=== PATIENT | male | born 1940 | race Caucasian/White ===

== ENCOUNTER → 2017-07-01 | Day surgery (SDC) | payer OTHER, MEDICARE ==
[2017-06-27 07:37] VITALS: Ht 175.3 cm; Wt 90.0 kg
[~2017-07-01] VITALS: Ht 175.3 cm; Wt 90.0 kg
[~2017-07-01] MED LIST: ASPCH81X PO; ATOR-22 PO; ATROPINE SULFATE 0.1 MG/ML 5ML SYR IV PRN; BACITRACIN/POLYMYXIN B OINT 15 GM TUBE EXT ONE; CALC-323 PO; CEFAZOLIN 2000MG IV PUSH 10 ML IV SCH; ERGO500037 PO; EpHEDrine SULFATE INJ 50 MG/ML AMP IV PRN; EpINEphrine INJ 1MG/ML AMP 1 MG/ML AMP ONE; FENO160T PO; FENTANYL CITRATE INJ 50 MCG/1 ML 2 ML VIAL IV PRN; FENTANYL CITRATE INJ 50 MCG/1 ML 2 ML VIAL ONE; HYDROCODONE/ACETAMOPHEN 5/325MG TAB PO PRN; LACTATED RINGER'S 1000ML 1,000 ML IV SCH; LEVO100T7 PO; LIDOCAINE 4% MPF SOAK 5 ML = 1 DOSE TOP ONE; LIDOCAINE HCL 2% 2 ML VIAL (20MG/ML) ONE; LIDOCAINE/EPINEPHRINE 1% 20 ML VIAL ONE; LISI20TA3 PO; MULT-506 PO; ONDANSETRON INJ 2 MG/ML 2 ML VIAL IV PRN; OXYMETAZOLINE HCL 0.05% NA SPR 15 ML BTL PRN; OXYMETAZOLINE HCL 0.05% NA SPR 15 ML BTL SCH; PRIM50TA34 PO; PROPOFOL IV EMULSION 10 MG/ML 20 ML VIAL IV ONE
--- NOTE | 2017-07-01 11:16 | History and Physical: Surg Cnt ---
History & Physical Date Jul 01, 2017. Chief Complaint RECURRENT NOSEBLEEDS History of Present Illness The patient is a 76 year old male with complaints of RECURRENT RIGHT ANTERIOR EPISTAXIS S/P MULTIPLE IN-OFFICE CAUTERIZATIONS WITH RECURRENCE AND RIGHT SEPTAL VASCULAR LESION NOTED THE LIKELY SOURCE OF THE BLEEDING. Past Medical/Surgical History PMH: ABOVE, CAD, DYSLIPIDEMIA, OSTEOPENIA, RBBB, SINUS BRADYCARDIA S/P PACEMAKER PLACEMENT, VIT D DEFICIENCY PSH: S/P CARDIAC CATH, S/P PACEMAKER, S/P PARATHYROID SURGERY Additional History Hepatic Disease: No Endocrine Disorder: No Kidney Disease: No Hypertension: No Heart Disease: No Bleeding Tendencies: No Infectious Diseases: No Allergies Coded Allergies: Latex1 -Allergic Contact Dermititis (Verified Allergy, Intermediate, RED SKIN, 07/01/17) NO KNOWN DRUG ALLERGIES (Verified Allergy, Unknown, ., 07/01/17) Home Medications Scheduled Aspirin (Aspirin Chewable), 81 MG PO DAILY Atorvastatin (Lipitor), 20 MG PO QAM Calcium Citrate-Vitamin D (Citracal Maximum), 1 TAB PO QAM Ergocalciferol (Vitamin D 76275 Unit), 50,000 UNIT PO 2XWK Fenofibrate (Tricor), 160 MG PO QAM Levothyroxine Sodium (Levothyroxine Sodium), 1 TAB PO QAM Lisinopril (Prinivil), 20 MG PO QAM Multivitamin (Multivitamin), 1 TAB PO QAM Primidone (Mysoline), 50 MG PO HS Physical Examination Skin: warm/dry, no rash Eyes: normal inspection, EOMI, sclerae normal ENT: + pertinent finding (3 MM ANTERIOR AND MID RIGHT SEPTAL VASCULAR LESION) Head: normocephalic, atraumatic Neck: supple, no adenopathy, trachea midline Respiratory/Chest: lungs clear, normal breath sounds, no respiratory distress Cardiovascular: regular rate, rhythm, no edema, no murmur Neurologic/Psych: no motor/sensory deficits, alert, normal reflexes, oriented x 3 Diagnosis RECURRENT RIGHT ANTERIOR EPISTAXIS AND RIGHT NASAL SEPTAL LESION Plan of Treatment EXCISIONAL BIOPSY OF RIGHT SEPTAL LESION
--- NOTE | 2017-07-01 11:48 | [facility] Operative Report ---
Operative Report Operative Date Jul 01, 2017. Pre-Operative Diagnosis Epistaxis, nasal lesion Post-Operative Diagnosis same Procedure(s) Performed Right Nasal Lesion Excisional Biopsy Surgeon Dr. Joshua 3D Specialist Surgeon(s) none Estimated Blood Loss 2ML Findings ~3MM RIGHT MID SEPTAL HYPERVASCULAR LESION Specimens RIGHT SEPTAL LESION I attest to the content of the Intraoperative Record and any orders documented therein. Any exceptions are noted below.
--- NOTE | 2017-07-01 11:51 | Discharge Instructions ---
Discharge Instructions Date of Service Jul 01, 2017. Admission Reason for Admission: Epistaxis, Nasal Lesion Discharge Discharge Diagnosis / Problem: SAME Discharge Goals Goal(s): Therapeutic intervention Activity Recommendations Activity Limitations: as noted below NO NOSE BLOWING FOR 2 WEEKS; NO DRIVING WHILE ON [place] . Current Hospital Diet Patient's current hospital diet: Discharge Diet Recommended Diet: Regular Diet Procedures Procedures Performed: Right Nasal Lesion Excisional Biopsy Pending Studies Studies pending at discharge: no Medical Emergencies . Who to Call and When: Medical Emergencies: If at any time you feel your situation is an emergency, please call 911 immediately. . Non-Emergent Contact Non-Emergency issues call your: Surgeon . . "Provider Documentation" section prepared by Marty Joshua. . VTE Core Measure Inpt VTE Proph given/why not?: SCD's
--- NOTE | 2017-07-01 12:10 | OPERATIVE REPORT ---
DATE OF OPERATION: 07/01/2017 PREOPERATIVE DIAGNOSES: 1. Recurrent right epistaxis. 2. Right nasal septal lesion. POSTOPERATIVE DIAGNOSES: 1. Recurrent right epistaxis. 2. Right nasal septal lesion. PROCEDURE: Excisional biopsy of right nasal septal lesion. SURGEON: Dr. Marty Joshua. ANESTHESIA: General laryngeal mask airway. ESTIMATED BLOOD LOSS: 2 mL. FINDINGS: Approximately 3-mm hypervascular mass involving the right mid septum. SPECIMENS: Right septal lesion for permanent pathologic assessment. COMPLICATIONS: None. INDICATIONS FOR THE PROCEDURE: The patient is a very pleasant 76-year-old male with a history of recurrent right anterior epistaxis, who has undergone several cauterizations in my office and continues to have recurrent epistaxis. 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 Due to the recurrent nature of the lesion and recurrent epistaxis, the decision was made to perform an excisional biopsy in hopes of preventing future nosebleeds. The patient presents for the above-mentioned procedure on an outpatient elective basis. DESCRIPTION OF PROCEDURE: After an informed consent had been obtained from the patient, the patient was wheeled to the operating room and placed on the operating table in the supine position. Monitors were placed. After induction of general anesthesia via a laryngeal mask airway, the patient was prepped in the usual fashion for nasal surgery. A total of 1 mL of 1% lidocaine with 1:100,000 epinephrine was used to inject the septal mucosa around the periphery of the vascular lesion. Lidocaine and epinephrine pledgets was placed into the right nasal cavity and pressure applied. The pledget was then removed. A #15 scalpel was used to make an elliptical incision around the 3-mm raised hypervascular lesion. A caudal elevator was used to elevate the septal mucosa off of the cartilaginous septum. The specimen tore during the dissection and 2 pieces were sent off for permanent pathological assessment. Suction Bovie electrocautery was used to achieve adequate hemostasis. There was only a small 1-mm area of exposed septal cartilage. Antibiotic ointment was applied to the excision site. This marked the end of the case. The patient tolerated the procedure well. There were no apparent complications. The patient had his laryngeal mask airway removed and was transferred to the recovery room in stable condition. I attest to the content of the Intraoperative Record and any orders documented therein. Any exception s are noted below.
[2017-07-01 12:30] VITALS: TEMP 36.3
[2017-07-01 12:56] VITALS: BP 126/76; PULSE 60; O2SAT 98
--- NOTE | 2017-07-01 13:02 | Anesthesia Progress Nt - [facility] ---
Anesthesia Post Op Note Date & Time Jul 01, 2017 at 13:02 Vital Signs Pain Intensity: 0 Vital Signs Past 12 Hours Date Time Temp Pulse Resp B/P (MAP) Pulse Ox O2 Delivery O2 Flow Rate FiO2 07/01/17 12:56 60 18 126/76 (93) 98 Room Air 07/01/17 12:30 36.3 60 18 129/81 (97) 97 Room Air 07/01/17 12:25 125/73 07/01/17 12:24 60 14 125/73 98 Room Air 07/01/17 12:24 60 13 07/01/17 12:24 60 13 98 07/01/17 12:20 120/74 07/01/17 12:19 60 15 96 07/01/17 12:19 60 15 07/01/17 12:15 107/74 07/01/17 12:14 60 15 07/01/17 12:14 60 15 96 07/01/17 12:10 115/74 07/01/17 12:09 60 10 07/01/17 12:09 60 10 100 07/01/17 12:05 125/72 07/01/17 12:04 60 16 07/01/17 12:04 60 16 99 07/01/17 12:00 112/78 07/01/17 11:59 60 10 99 07/01/17 11:59 60 10 07/01/17 11:55 118/69 07/01/17 11:54 60 99 07/01/17 11:54 36.7 59 12 115/77 99 Mask 6 07/01/17 11:54 60 07/01/17 09:08 36.7 58 20 125/81 (96) 96 Room Air Notes Mental Status: alert / awake / arousable, participated in evaluation Pt Amnestic to Procedure: Yes Nausea / Vomiting: adequately controlled Pain: adequately controlled Airway Patency, RR, SpO2: stable & adequate BP & HR: stable & adequate Hydration State: stable & adequate Anesthetic Complications: no major complications apparent
== END | disposition home or self-care (01) ==
LOC: X.SURG 08:34
DX: D38.5 Neoplasm of uncertain behavior of other respiratory organs (principal); R04.0 Epistaxis; I25.10 Atherosclerotic heart disease of native coronary artery without angina pectoris; I45.10 Unspecified right bundle-branch block; E78.5 Hyperlipidemia, unspecified; I49.5 Sick sinus syndrome; Z95.0 Presence of cardiac pacemaker; E55.9 Vitamin D deficiency, unspecified; M85.80 Other specified disorders of bone density and structure, unspecified site; Z79.82 Long term (current) use of aspirin; Z79.899 Other long term (current) drug therapy; I10 Essential (primary) hypertension; E03.9 Hypothyroidism, unspecified; N40.0 Benign prostatic hyperplasia without lower urinary tract symptoms